=== PATIENT | male | born 1995 | race African-American/Black ===

== ENCOUNTER 2017-12-12 21:34 | Emergency (ER) | payer MEDICAID, OTHER ==
[~2017-12-12] VITALS: Ht 185.4 cm; Wt 70.3 kg
[2017-12-12 21:34] VITALS: BP 127/74
[~2017-12-12 21:34] MED LIST: NKM
[2017-12-12] MEDS ORDERED: ALBUTEROL2.5 MG/3 M INH (21:41)
[2017-12-12] MEDS ORDERED: DEPAKOTE250 MG PO (21:41)
[2017-12-12 23:33] LABS: EOSINOPHILS % (AUTO) 1.7 % (0.0-3.0); HEMATOCRIT 39.6 % (42.0-52.0); LYMPHOCYTES % (AUTO) 18.3 % (20.0-45.0); MEAN CORPUSCULAR VOLUME 81 FL (80-99); MONOCYTES % (AUTO) 9.5 % (1.0-10.0); NEUTROPHILS % (AUTO) 69.4 % (45.0-75.0); PLATELET COUNT 255 K/UL (150-450); RED BLOOD COUNT 4.89 M/UL (4.70-6.10); WHITE BLOOD COUNT 5.9 K/UL (4.8-10.8)
[2017-12-12 23:45] LABS: ANION GAP 5 mmol/L (5-15); BLOOD UREA NITROGEN 16 mg/dL (7-18); CALCIUM 8.9 MG/DL (8.5-10.1); CARBON DIOXIDE 28 MMOL/L (21-32); CHLORIDE 104 MMOL/L (98-107); CREATININE 0.9 MG/DL (0.55-1.30); POTASSIUM 4.1 MMOL/L (3.5-5.1); SODIUM 137 MMOL/L (136-145)
[2017-12-12 23:49] LABS: ALANINE AMINOTRANSFERASE 24 U/L (12-78); ALBUMIN 3.5 G/DL (3.4-5.0); ALBUMIN/GLOBULIN RATIO 0.9 (1.0-2.7); ALKALINE PHOSPHATASE 62 U/L (46-116); ASPARTATE AMINO TRANSFERASE 22 U/L (15-37); BILIRUBIN,TOTAL 0.3 MG/DL (0.2-1.0)
[2017-12-13 01:36] VITALS: BP 127/72
--- NOTE | 2017-12-13 04:38 | Emergency Room Report ---
History of Present Illness General Chief Complaint: Pain Source: Patient, EMS Present Illness HPI Patient was brought in by paramedics for complaints of rectal pain Upon arrival the patient fell asleep fairly quickly upon arrival Had to have multiple attempts of awakening her to obtain history At this time the patient complains that he felt like he had an infection in his blood system Denies any rectal pain denies any chest pain or shortness of breath Denies any vomiting denies any diarrhea Patient has significant psychiatric history at this time reports that he has been noncompliant with some of his medications Denies any neck pain or photophobia Allergies: Coded Allergies: HALOPERIDOL (Unverified Allergy, Unknown, 05/20/14) RISPERIDONE (Unverified Allergy, Unknown, 05/20/14) Patient History Past Medical History: see triage record Pertinent Family History: none Reviewed Nursing Documentation: PMH: Agreed, PSxH: Agreed Nursing Documentation-PMH Hx Asthma: Yes History Of Psychiatric Problem: Yes - schizophrenia Review of Systems All Other Systems: negative except mentioned in HPI Physical Exam Vital Signs Date Time Temp Pulse Resp B/P (MAP) Pulse Ox O2 Delivery O2 Flow Rate FiO2 12/12/17 21:28 98.2 86 14 127/74 97 Room Air 98.2 Sp02 EP Interpretation: reviewed, normal General Appearance: well appearing, no apparent distress Head: normocephalic, atraumatic Eyes: bilateral eye PERRL, bilateral eye EOMI ENT: hearing grossly normal, normal pharynx, TMs + canals normal, uvula midline Neck: full range of motion, supple, no meningismus, no bony tend Respiratory: lungs clear, normal breath sounds, no rhonchi, no respiratory distress, no retraction, no accessory muscle use Cardiovascular #1: normal peripheral pulses, regular rate, rhythm, no edema, no gallop, no JVD, no murmur Gastrointestinal: normal bowel sounds, non tender, soft, no mass, no organomegaly, non-distended, no guarding, no hernia, no pulsatile mass, no rebound Genitourinary: no CVA tenderness Musculoskeletal: normal inspection Neurologic: oriented x3, responsive, pool manager III-XII nml as tested, motor strength/ tone normal, sensory intact Psychiatric: mood/affect normal, other - Denies any suicidal or homicidal thoughts Skin: normal color, no rash, warm/dry, palpation normal Lymphatic: normal inspection, no adenopathy Medical Decision Making ER Course At this patient have baseline blood work obtained all within normal limits He has rested comfortably throughout the stay He does appear to have some underlying psychiatric component Patient will have consultation with psychiatry in the morning and further outpatient follow-up Labs Test 12/12/17 23:23 12/13/17 03:05 White Blood Count 5.9 K/UL (4.8-10.8) Red Blood Count 4.89 M/UL (4.70-6.10) Hemoglobin 13.0 G/DL (14.2-18.0) Hematocrit 39.6 % (42.0-52.0) Mean Corpuscular Volume 81 FL (80-99) Mean Corpuscular Hemoglobin 26.7 PG (27.0-31.0) Mean Corpuscular Hemoglobin Concent 32.9 G/DL (32.0-36.0) Red Cell Distribution Width 13.0 % (11.6-14.8) Platelet Count 255 K/UL (150-450) Mean Platelet Volume 6.4 FL (6.5-10.1) Neutrophils (%) (Auto) 69.4 % (45.0-75.0) Lymphocytes (%) (Auto) 18.3 % (20.0-45.0) Monocytes (%) (Auto) 9.5 % (1.0-10.0) Eosinophils (%) (Auto) 1.7 % (0.0-3.0) Basophils (%) (Auto) 1.0 % (0.0-2.0) Sodium Level 137 MMOL/L (136-145) Potassium Level 4.1 MMOL/L (3.5-5.1) Chloride Level 104 MMOL/L (98-107) Carbon Dioxide Level 28 MMOL/L (21-32) Anion Gap 5 mmol/L (5-15) Blood Urea Nitrogen 16 mg/dL (7-18) Creatinine 0.9 MG/DL (0.55-1.30) Estimat Glomerular Filtration Rate > 60 mL/min (>60) Glucose Level 101 MG/DL (74-106) Calcium Level 8.9 MG/DL (8.5-10.1) Total Bilirubin 0.3 MG/DL (0.2-1.0) Aspartate Amino Transf (AST/SGOT) 22 U/L (15-37) Alanine Aminotransferase (ALT/SGPT) 24 U/L (12-78) Alkaline Phosphatase 62 U/L (46-116) Total Protein 7.3 G/DL (6.4-8.2) Albumin 3.5 G/DL (3.4-5.0) Globulin 3.8 g/dL Albumin/Globulin Ratio 0.9 (1.0-2.7) Salicylates Level 2.2 ug/mL (2.8-20) Acetaminophen Level < 2 MCG/ML (10-30) Serum Alcohol < 3 mg/dL Urine Opiates Screen Negative (NEGATIVE) Urine Barbiturates Screen Negative (NEGATIVE) Phencyclidine (PCP) Screen Negative (NEGATIVE) Urine Amphetamines Screen Negative (NEGATIVE) Urine Benzodiazepines Screen Negative (NEGATIVE) Urine Cocaine Screen Negative (NEGATIVE) Urine Marijuana (THC) Screen Negative (NEGATIVE) Last Vital Signs Date Time Temp Pulse Resp B/P (MAP) Pulse Ox O2 Delivery O2 Flow Rate FiO2 12/13/17 01:36 97.7 74 14 127/72 99 Room Air 97.7 Status: improved Signed Out To: Oncoming physician, patient will have psychiatric consult and likely dispos Referrals: [facility],REFERR[facility] (PCP) MARLYN HENRY D.O. Dec 13, 2017 04:38
[2017-12-13 05:27] VITALS: BP 108/60
[2017-12-13] MEDS ORDERED: Valproate Sodium INJ 500 MG in NS 55 ML IV ONE (07:45)
[2017-12-13 07:48] VITALS: BP 128/73
[2017-12-13] MEDS ORDERED: DEPAKOTE250 MG PO (10:45)
[2017-12-13 11:00] VITALS: BP 120/86
== END 2017-12-13 11:00 | disposition home or self-care (01) ==
LOC: EDBD 21:34 → EMR 22:00
DX: K62.89 Other specified diseases of anus and rectum (principal); J45.909 Unspecified asthma, uncomplicated
CPT/HCPCS: 36415; 80053; 80164; 80307; 85025; 96374; 99284; G0480; 80329

== ENCOUNTER 2018-01-19 14:15 | Emergency (ER) | payer MEDICAID, OTHER ==
[~2018-01-19] VITALS: Ht 182.9 cm; Wt 113.4 kg
[2018-01-19 14:05] VITALS: BP 122/83
[~2018-01-19 14:15] MED LIST changes: +ALBUTEROL2.5 MG/3 M INH; +BENZTROPINE ME0.5 MG PO; +DEPAKOTE125 MG PO; +DEPAKOTE250 MG PO; +HALDOL5 MG/1 ML IJ
--- NOTE | 2018-01-19 14:26 | Emergency Room Report ---
History of Present Illness General Chief Complaint: Medication Refill Present Illness HPI 22-year-old male presents to the emergency department requesting refill of his psychiatric medication Depakote x 3 days. Patient denies SI, HI, hallucinations , delusions, melvina or hypomania. Pt. reports "arthritis pain" in the "joints" not detailing any specific location. Denies CP, Palpitations, LOC, AMS, dizziness, Changes in Vision, Sensation, paresthesias, or a sudden severe headache. Allergies: Coded Allergies: HALOPERIDOL (Unverified Allergy, Unknown, 05/20/14) RISPERIDONE (Unverified Allergy, Unknown, 05/20/14) Patient History Past Medical History: see triage record Past Surgical History: none Pertinent Family History: none Reviewed Nursing Documentation: PMH: Agreed; PSxH: Agreed Nursing Documentation-PMH Hx Asthma: Yes History Of Psychiatric Problem: Yes Review of Systems All Other Systems: negative except mentioned in HPI Physical Exam Vital Signs Date Time Temp Pulse Resp B/P (MAP) Pulse Ox O2 Delivery O2 Flow Rate FiO2 01/19/18 13:56 98.5 80 18 122/83 100 Room Air 98.4 Sp02 EP Interpretation: reviewed, normal General Appearance: no apparent distress, alert, GCS 15, non-toxic Head: normocephalic, atraumatic Eyes: bilateral eye PERRL ENT: hearing grossly normal, normal voice Neck: full range of motion Respiratory: lungs clear, normal breath sounds, no wheezing, speaking full sentences Cardiovascular #1: regular rate, rhythm Musculoskeletal: back normal, gait/station normal, normal range of motion Neurologic: alert, oriented x3, responsive, senior gis analyst III-XII nml as tested, motor strength/tone normal, sensory intact, normal gait, speech normal, grossly normal Psychiatric: judgement/insight normal, no suicidal/homicidal ideation, other - Pt. has flattened affect. Skin: normal color, no rash, warm/dry, well hydrated Medical Decision Making PA Attestation Dr. Chamberlain is my supervising Physician whom patient management has been discussed with. Diagnostic Impression: Primary Impression: Encounter for medication refill ER Course 22-year-old male presents to the emergency department requesting refill of his psychiatric medication Depakote x 3 days. Patient denies SI, HI, hallucinations , delusions, melvina or hypomania. Pt. reports "arthritis pain" in the "joints" not detailing any specific location. Denies CP, Palpitations, LOC, AMS, dizziness, Changes in Vision, Sensation, paresthesias, or a sudden severe headache. Denies CP, Palpitations, LOC, AMS, dizziness, Changes in Vision, Sensation, paresthesias, or a sudden severe headache. Ddx considered but are not limited to: drug seeking, OD, psychiatric disturbance , non-compliance just to name a few. Vital signs: are WNL, pt. is afebrile H&PE are most consistent with need for medication refill. Pt. has underlying psychiatric condition which is evident , however functional, and does not have any psychotic symptoms/feature at this time. ORDERS: none required at this time, the diagnosis is clinical ED INTERVENTIONS: -Tylenol PO -I do not identify an emergent condition at this time. With current presentation , pt. is stable for close outpatient follow up and conservative treatment. D/ w pt. to return promptly to ED with worsening or new symptoms.- Pt. (and or responsible alliance party) verbalizes' understanding and agreement with proposed treatment plan.proposed treatment plan. DISCHARGE: At this time pt. is stable for d/c to home. Will provide printed patient care instructions, and any necessary prescriptions. Care plan and follow up instructions have been discussed with the patient prior to discharge. Last Vital Signs Date Time Temp Pulse Resp B/P (MAP) Pulse Ox O2 Delivery O2 Flow Rate FiO2 01/19/18 14:05 98.4 80 18 122/83 100 Room Air 98.4 Disposition: HOME, SELF-CARE Condition: Stable Scripts Divalproex Sodium (Depakote) 500 Mg Tablet. 500 MG PO BID, #20 TAB Prov: Althea Mejia 01/19/18 Patient Instructions: Medicine Refill at the Emergency Department Additional Instructions: Take medications as directed. Follow up with a Primary Care Provider in 3-5 days, even if your symptoms have resolved. --Please review list of primary care clinics, if you do not already have a primary care provider Return sooner to ED if new symptoms occur, or current symptoms become worse. - Please note that this Emergency Department Report was dictated using [employer] erector technology software, occasionally this can lead to erroneous entry secondary to interpretation by the dictation equipment. Althea Mejia Jan 19, 2018 14:26
[2018-01-19] MEDS ORDERED: DEPAKOTE500 MG PO (14:27)
[2018-01-19] MEDS ORDERED: Acetaminophen 500mg (ES) tab ORAL ONE (14:30)
[2018-01-19 14:37] VITALS: BP 122/83
== END 2018-01-19 14:38 | disposition home or self-care (01) ==
LOC: EDBD 14:15 → EMR 14:23
DX: Z76.0 Encounter for issue of repeat prescription (principal); Z88.8 Allergy status to other drugs, medicaments and biological substances; J45.909 Unspecified asthma, uncomplicated
CPT/HCPCS: 99283